=== PATIENT | female | born 1985 | race African-American/Black ===

== ENCOUNTER 2021-01-16 11:01 | Emergency (ER) | payer MEDICAID ==
[2021-01-16] MEDS ORDERED: methylPREDNISolone Sod Succ/PF 125 MG/2 ML VIAL ONE (13:08)
[2021-01-16] MEDS ORDERED: Metoclopramide HCl 10 MG/2 ML VIAL ONE (13:08)
[2021-01-16] MEDS ORDERED: diphenhydrAMINE 50 MG/ML VIAL ONE (13:08)
[2021-01-16] MEDS ORDERED: Ketorolac Tromethamine 30 MG/ML VIAL ONE (13:08)
[2021-01-16] MEDS ORDERED: Magnesium 2 GM/50 ML BAG (IN WATER) ONE (14:20)
== END 2021-01-16 16:11 | disposition home or self-care (01) ==
LOC: CSHERS 11:01
DX: R51.9 Headache, unspecified (principal)
CPT/HCPCS: 96365; 96366; 96375; J1200; J1885; J2765; J2930; J3475

== ENCOUNTER 2022-07-22 12:08 | Emergency (ER) | payer MEDICAID ==
[2022-07-22 12:49] LABS: Bilirubin Neg (Negative); Blood, Urine Negative (Negative); Clarity Clear (Clear); Glucose, Urine (Dipstick) Normal (Negative); Ketone, Urine Negative (Negative); Leukocyte 25 (Negative); Nitrite Negative (Negative); Protein, Urine (Dipstick) Negative (Neg-Trace); Specific Gravity, Urine 1.015 (1.005-1.030); Urobilinogen Normal mg/dL (Less than 2)
[2022-07-22 13:18] LABS: Bacteria/HPF Rare-Few HPF (None Seen); RBC/HPF 0-3 HPF (0-3); Squamous Epithelial 0-3 HPF (0-3); WBC/HPF 0-3 HPF (0-3)
[2022-07-22] MEDS ORDERED: cefTRIAXone\\ROCEPHIN 250 MG VIAL ONE (13:28)
[2022-07-22] MEDS ORDERED: Azithromycin 250 MG TAB ONE (13:28)
[2022-07-22] MEDS ORDERED: Sterile Water 10 ML ONE (13:28)
[2022-07-23 11:09] LABS: Chlam.trachomatis by PCR,Urine Not Detected (NotDetected)
== END 2022-07-22 14:10 | disposition home or self-care (01) ==
LOC: CSHERS 12:08
DX: R30.0 Dysuria (principal)
CPT/HCPCS: 81003; 81015; 87086; 87491; 87591; 96372; 99283; J0696

== ENCOUNTER 2024-08-04 10:30 | Outpatient (CLI) | payer OTHER | END 2024-08-04 10:31 | disposition home or self-care (01) | LOC: CSHMAMMO 10:30 | DX: Z12.31 Encounter for screening mammogram for malignant neoplasm of breast (principal); Z80.3 Family history of malignant neoplasm of breast; Z91.89 Other specified personal risk factors, not elsewhere classified | CPT/HCPCS: 77063; 77067 ==